=== PATIENT | male | born 1945 | race Caucasian/White ===

== ENCOUNTER 2025-01-05 09:16 | Outpatient (AMB) | payer MEDICARE, BC, SELFPAY ==
--- NOTE | 2025-01-05 09:28 | A.OFFVIS_ITS ---
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 He reports right hand rest tremors 2-3 years . Now he has some leg tremors too He has noticed difficulty with dressing , using utensils, showering , writing etc. No change in speech and gait He has some hyposmia. He reports drooling , some vivid dreams. no known mood disorder but lost his grandaughter last year and went for grief counselling. No exposure to drugs , pesticides, no fh/o parkinsons , head injury He gait is slower. he denies constiaption , , has nocturia He denies any cognitive issues He plays Golf everydya during summer. [facility] Medical History Tremor Obesity with serious comorbidity Obesity Medicare annual wellness visit, initial High cholesterol Complicated grief Chronic urticaria Chronic diarrhea Carotid atherosclerosis Arthritis Surgical History Hx of total knee replacement History of hydrocelectomy History of ankle surgery Physical Exam Vital Signs: Last Vital Signs Pulse 67 01/05/25 09:29 BP 120/80 01/05/25 09:29 Pulse Ox 92 01/05/25 09:29 Oxygen Delivery Method Room Air 01/05/25 09:29 Const General: cooperative, healthy appearing, comfortable and no acute distress Nutritional Appearance: obese Orientation/consciousness: patient oriented x3 Eyes Pupils: Equal, round and reactive pupils present Neuro Other: Mildly decreased facial expression and blink Right hand rest tremors Cog wheel rigidty Right UE 2+ FFM and foot taps were decreased merlyn R>L Gait- good posture , no arm swing on the right , good stride , good turning General: patient oriented x3, moves all extremities and no focal motor deficits Cranial nerves: Yes Equal, round and reactive pupils present, Yes Bilaterally intact EOM present, Yes Nystagmus not present, Yes Normal facial strength present, Yes Midline tongue present, Yes Symmetric palate elevation present and Yes Ability to bilaterally elevate shoulders present Cognition (Neuro): normal cognition Motor exam (neuro): 5/5 motor strength present throughout Deep tendon reflexes (DTR's): Right triceps reflex intensity grade: 1+, Left triceps reflex intensity grade: 1+, Rt Biceps (C5, C6): 1+, Left biceps reflex intensity grade: 1+, Right brachioradialis reflex intensity grade: 1+, Left brachioradialis reflex intensity grade: 1+, Right patellar reflex intensity grade: 1+ and Left patellar reflex intensity grade: 1+ Coordination: [id number] test normal Assessment & Plan Assessment & Plan (1) Parkinsons disease: Code(s): G20.A1 - Parkinson's disease without dyskinesia, without mention of fluctuations Category: Medical Qualifiers: Dyskinesia presence: without dyskinesia Fluctuating manifestations: without fluctuating manifestations Qualified Code(s): G20.A1 - Parkinson's disease without dyskinesia, without mention of fluctuations (2) Snoring: Code(s): R06.83 - Snoring Category: Medical (3) Hypersomnia: Code(s): G47.10 - Hypersomnia, unspecified Category: Medical Plan Discussed about the diagnosis in detail . Info on APDA and Parkinsons foundation given to the patient will hold off on medications for now I will scehudle him for home sleep testto r/o sleep apnea Orders: Orders RT home sleep study Today G47.10 - Hypersomnia, unspecified, R06.83 - Snoring MR head/brain wo con Today G20.A1 - Parkinson's disease without dyskinesia, without mention of fluctuations Coding Level of Care Code New Pt Level 4 (03765) Complex EM visit Add On G2211 Diagnoses Parkinson's disease without dyskinesia or fluctuating manifestations G20.A1 Dyskinesia presence: without dyskinesia Fluctuating manifestations: without fluctuating manifestations Snoring R06.83 Hypersomnia G47.10
[2025-01-05 09:29] VITALS: BP 120/80; PULSE 67; O2SAT 92
== END 2025-01-05 10:28 | disposition home or self-care (01) ==
LOC: HO.HSMS 09:18
PROVIDERS: PCP Internal Medicine; Visit Provider Psychiatry & Neurology Neurology
DX: G20.A1 Parkinson's disease without dyskinesia, without mention of fluctuations (principal); R06.83 Snoring; G47.10 Hypersomnia, unspecified
CPT/HCPCS: 99204; G2211

== ENCOUNTER → 2025-01-05 09:16 | Outpatient (BNVA) | payer MEDICARE, BC, SELFPAY | PROVIDERS: PCP Internal Medicine; Visit Provider Psychiatry & Neurology Neurology | DX: G20.A1 Parkinson's disease without dyskinesia, without mention of fluctuations (principal); R06.83 Snoring; G47.10 Hypersomnia, unspecified | CPT/HCPCS: 99202 ==

== ENCOUNTER 2025-01-18 07:26 | Outpatient (REF) | payer MEDICARE, BC, SELFPAY ==
--- NOTE | ~2025-01-18 | MR_ITS ---
EXAMINATION: MR BRAIN WITHOUT CONTRAST CLINICAL INFORMATION: Parking centimeters disease without dyskinesia. COMPARISON: None available. TECHNIQUE: MRI of the brain was obtained using routine sequences without contrast. FINDINGS: No restricted diffusion. No abnormal susceptibility signal in the substantia nigra. No absent swallow tail sign. No acute intracranial hemorrhage, mass effect, midline shift, hydrocephalus or herniation. Bilateral, scattered, nonspecific, punctate subcortical deep white matter hyperintense T2 FLAIR signal involving centrum semiovale and clinton radiata. Leos-white matter differentiation is normal. Prominence of the extra-axial CSF spaces cerebral sulci and ventricles. Sellar/suprasellar region demonstrated no signal abnormality or gross masses. Craniocervical junction demonstrates normal position of the cerebellar tonsils. Flow-void signal within the main cerebral vessels is normal. MR/MR head/brain wo con IMPRESSION: No acute brain abnormality. Nonspecific, white matter T2 FLAIR signal foci. Global cerebral atrophy. Electronically signed by: Alfonzo Cleveland MD 01/18/2025 08:11 AM EDT
== END 2025-01-18 07:27 | disposition home or self-care (01) ==
LOC: HO.MRI 07:26
PROVIDERS: Visit Provider Psychiatry & Neurology Neurology
DX: G20.A1 Parkinson's disease without dyskinesia, without mention of fluctuations (principal)
CPT/HCPCS: 70551

== ENCOUNTER → 2025-01-18 07:26 | Outpatient (BNV) | payer MEDICARE, BC, SELFPAY | PROVIDERS: Visit Provider Radiology Diagnostic Radiology | DX: G20.A1 Parkinson's disease without dyskinesia, without mention of fluctuations (principal) | CPT/HCPCS: 70551 ==

== ENCOUNTER → 2025-03-16 12:57 | Outpatient (REF) | payer MEDICARE, BC, SELFPAY | LOC: HO.SL 12:57 | PROVIDERS: Visit Provider Psychiatry & Neurology Neurology | DX: R06.83 Snoring (principal); G47.10 Hypersomnia, unspecified | CPT/HCPCS: 95806 ==

== ENCOUNTER 2025-05-11 11:22 | Outpatient (AMB) | payer MEDICARE, BC, SELFPAY ==
--- NOTE | 2025-05-11 11:25 | A.OFFVIS_ITS ---
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 His home sleep test was c/w severe sleep apnea. AHI was 53 and oxygen ofelia was 71 %. History form his initial visit- 12/2024- He reports right hand rest tremors 2-3 years . Now he has some leg tremors too He has noticed difficulty with dressing , using utensils, showering , writing etc. No change in speech and gait He has some hyposmia. He reports drooling , some vivid dreams. no known mood disorder but lost his grandaughter last year and went for grief counselling. No exposure to drugs , pesticides, no fh/o parkinsons , head injury He gait is slower. he denies constiaption , , has nocturia He denies any cognitive issues He plays Golf everyday during summer. [facility] Medical History (Updated 05/11/25 @ 11:55 by Juany Lorenz MD) Obstructive sleep apnea hypopnea, severe Hypersomnia Snoring Parkinsons disease Tremor Obesity with serious comorbidity Obesity Medicare annual wellness visit, initial High cholesterol Complicated grief Chronic urticaria Chronic diarrhea Carotid atherosclerosis Arthritis Surgical History Hx of total knee replacement History of hydrocelectomy History of ankle surgery Physical Exam Vital Signs: Last Vital Signs Pulse 82 05/11/25 11:28 BP 140/92 H 05/11/25 11:28 Pulse Ox 96 05/11/25 11:28 Oxygen Delivery Method Room Air 05/11/25 11:28 BMI result Body Mass Index 36.6 Const General: cooperative, healthy appearing, comfortable and no acute distress Nutritional Appearance: obese Orientation/consciousness: patient oriented x3 Eyes Pupils: Equal, round and reactive pupils present Neuro Other: Mildly decreased facial expression and blink Right hand rest tremors Cog wheel rigidty Right UE 2+ FFM and foot taps were decreased merlyn R>L Gait- good posture , no arm swing on the right , good stride , good turning General: patient oriented x3, moves all extremities and no focal motor deficits Cranial nerves: Yes Equal, round and reactive pupils present, Yes Bilaterally intact EOM present, Yes Nystagmus not present, Yes Normal facial strength present, Yes Midline tongue present, Yes Symmetric palate elevation present and Yes Ability to bilaterally elevate shoulders present Cognition (Neuro): normal cognition Motor exam (neuro): 5/5 motor strength present throughout Coordination: [id number] test normal Assessment & Plan Assessment & Plan (1) Parkinsons disease: Code(s): G20.A1 - Parkinson's disease without dyskinesia, without mention of fluctuations Category: Medical Qualifiers: Dyskinesia presence: without dyskinesia Fluctuating manifestations: without fluctuating manifestations Qualified Code(s): G20.A1 - Parkinson's disease without dyskinesia, without mention of fluctuations (2) Snoring: Code(s): R06.83 - Snoring Category: Medical (3) Hypersomnia: Code(s): G47.10 - Hypersomnia, unspecified Category: Medical (4) Obstructive sleep apnea hypopnea, severe: Comment: AHI 53 O2 ofelia 71 % Code(s): G47.33 - Obstructive sleep apnea (adult) (pediatric) Category: Medical Plan Discussed about the diagnosis in detail . Info on APDA and Parkinsons foundation given to the patient he wants to hold off on medications for now Home sleep test c/w severe sleep apnea- discussed results Start CPAP 5-20 and follow up Coding Level of Care Code Est Pt Level 4 (12024) Add On Problem Visit Only Diagnoses Parkinson's disease without dyskinesia or fluctuating manifestations G20.A1 Dyskinesia presence: without dyskinesia Fluctuating manifestations: without fluctuating manifestations Snoring R06.83 Hypersomnia G47.10 Obstructive sleep apnea hypopnea, severe G47.33
[2025-05-11 11:28] VITALS: BP 140/92; PULSE 82; O2SAT 96; BMI 36.6
== END 2025-05-11 12:05 | disposition home or self-care (01) ==
LOC: HO.HSMS 11:22
PROVIDERS: PCP Internal Medicine; Visit Provider Psychiatry & Neurology Neurology
DX: G20.A1 Parkinson's disease without dyskinesia, without mention of fluctuations (principal); R06.83 Snoring; G47.10 Hypersomnia, unspecified; G47.33 Obstructive sleep apnea (adult) (pediatric)
CPT/HCPCS: 99214; G2211

== ENCOUNTER → 2025-05-11 11:22 | Outpatient (BNVA) | payer MEDICARE, BC, SELFPAY | PROVIDERS: PCP Internal Medicine; Visit Provider Psychiatry & Neurology Neurology | DX: G20.A1 Parkinson's disease without dyskinesia, without mention of fluctuations (principal); R06.83 Snoring; G47.33 Obstructive sleep apnea (adult) (pediatric); G47.10 Hypersomnia, unspecified | CPT/HCPCS: 99212 ==